=== PATIENT | female | born 1970 | race American Indian/Alaskan Native ===

== ENCOUNTER 2017-06-30 10:45 | Outpatient (CLI) | payer MEDICARE ==
[2017-06-30 11:05] LABS: Hemoglobin 8.7 gm/dl (10.1-14.3); Mean Corpuscular HGB Conc 31 % (30-34); Mean Corpuscular Volume 79 fl (79-97); Red Blood Count 3.55 M/mm3 (3.65-5.03); Red Cell Distribution Width 15.4 % (13.2-15.2)
[2017-06-30 11:19] LABS: Mean Corpuscular Hemoglobin 25 pg (28-32); Platelet Count 82 K/mm3 (140-440)
[2017-06-30 11:20] LABS: Bilirubin,Urine NEG (Negative); Blood,Urine MOD (Negative); Color,Urine Yellow (Yellow); Nitrite,Urine NEG (Negative); Urobilinogen,Urine < 2.0 mg/dL (<2.0)
[2017-06-30 11:33] LABS: Albumin 3.9 g/dL (3.9-5); Calcium 8.7 mg/dL (8.4-10.2)
== END 2017-06-30 10:46 | disposition home or self-care (01) ==
LOC: LAB 10:45
PROVIDERS: ATTEND Internal Medicine Nephrology
DX: N18.4 Chronic kidney disease, stage 4 (severe) (principal); Z94.0 Kidney transplant status
CPT/HCPCS: 36415; 80048; 80197; 81001; 82040; 84100; 85027

== ENCOUNTER 2018-01-12 08:38 | Outpatient (CLI) | payer MEDICARE ==
[2018-01-12 09:14] LABS: Bilirubin,Urine NEG (Negative); Blood,Urine SM (Negative); Color,Urine Yellow (Yellow); Urobilinogen,Urine < 2.0 mg/dL (<2.0)
[2018-01-12 09:22] LABS: Albumin 4.1 g/dL (3.9-5); Calcium 8.9 mg/dL (8.4-10.2)
== END 2018-01-12 08:39 | disposition home or self-care (01) ==
LOC: LAB 08:38
PROVIDERS: ATTEND Internal Medicine Nephrology
DX: N18.4 Chronic kidney disease, stage 4 (severe) (principal); Z94.0 Kidney transplant status; Z88.4 Allergy status to anesthetic agent
CPT/HCPCS: 36415; 80048; 80197; 81001; 82040; 83970; 84100